=== PATIENT | female | born 1960 | race Caucasian/White ===

== ENCOUNTER 2017-01-18 23:05 | Emergency (ER) | payer OTHER ==
[2017-01-18] MEDS ORDERED: ASPIRIN 81 MG TAB.CHEW ONE (23:15)
[2017-01-18] MEDS ORDERED: ASPIRIN 81 MG TAB.CHEW PO ONE (23:21)
[2017-01-18] MEDS: NITROGLYCERIN 0.4 MG/TAB BTL SL PRN ×2 (23:22→23:27)
[2017-01-18] MEDS ORDERED: LABETALOL HCL 5 MG/ML VIAL IV ONE ×2 (23:30→23:36)
--- NOTE | 2017-01-18 23:35 | ERNOTE ---
Chest Pain/Cardiac HPI Date of Service: 01/18/17 Chief Complaint: Chest Pain Time Seen by Provider: 01/18/17 23:28 Source: patient, family Immunizations: IMMUNIZATION HX Immunizations Up to Date Yes History of Influenza Vaccine No Hx Pneumococcal Vaccination No Allergies/Adverse Reactions: Allergies [place] And Derivatives Allergy (Verified 01/18/17 23:20) Hives Home Medications: HOME MEDICATIONS Zolpidem Tartrate [Ambien] 10 mg PO HS PRN 12/21/15 [Last Taken 12/20/15] Lisinopril [Zestril] 10 mg PO DAILY #30 tab 01/19/17 [Last Taken Unknown] Narrative: C/O CHEST PRESSURE ABOUT 2200 . SHE THINKS SHE MAY HAVE HEAT EXHASUTION BECAUSE SHE SAYS SHE HAS HAD THAT BEFORE. - Patient's Past Medical History Patient History - Medical: Anxiety, Other Patient History - Cardiac/Respiratory: Other Patient History - Cancer: No Hx of Cancer Patient History - Surgical Procedures: Hysterectomy, Tubal Ligation, T & A Patient History - Other: None LMP (females 10-50): hysterectomy - Social History Living Situations: other Abuse History: No History of abuse Psych History: Hx of Anxiety Smoking Status: Current every day smoker Have you smoked in the past 12 months: Yes Alcohol Use: occasionally Drug Use: none - Immunizations Immunizations Up to Date: Yes Hx Pneumococcal Vaccination: No History of Influenza Vaccine: No ED Progress - Results and Orders Patient's Lab Results:: I have reviewed the patient's lab results. Results and Orders: LABS ARE NORMAL WITH FIRST AND 4 HOUR TROPONIN BOTH NEGATIVE = <0.017 - Vital Signs Patient's Vital Signs:: I have reviewed the patient's vital signs. Vital Signs: Vital Signs 01/18/17 23:14 Temperature 36.4 C L Pulse Rate 79 Respiratory 20 Rate Blood Pressure 220/118 O2 Sat by Pulse 93 Oximetry REPEAT BP AFTER NTG X 2 = 174/111, LABETALOL IV ORDERED. - EKG EKG: NSR EKG read: Interp. by me - Progress/Reassessment Chief Complaint: Chest Pain Progress:: Pain free at discharge - EXCEPT FOR SOME HEADACHE THAT DEVELOPED AFTER THE NTG X 2 S.L. HER OTHER PROBLEM OF HTN IMPROVED GREATLY AFTER 2ND DOSE OF LABETOLOL IV BUT SHE IS GOING TO NEED TO START ON ORAL TREATMENT . Plan - Plan Plan: HER MORE RECENT BLOOD PRESSURES ARE IN 160/90 RANGE. Departure - Departure Clinical Impression: Chest pain in adult HTN (hypertension) Qualifiers: Hypertension type: essential hypertension Qualified Code(s): I10 - Essential ( primary) hypertension Disposition: Home Follow Up Needed Condition: Good Instructions: Chest Pain Observation, Hypertension, [id number], DASH Eating Plan, Managing Your High Blood Pressure Additional Instructions: YOU NEED TO CONTACT YOUR DOCTOR FRIDAY AND TALK TO HIM ABOUT GETTING FURTHER EVALUATION AND FOLLOW UP FOR TWO REASONS, #1 THE CHEST PAIN MAY NEED FURTHER WORK UP. IF IT RETURNS BEFORE YOU CAN BE SEEN BY HIM, RETURN TO THE ER. #2 . YOUR BLOOD PRESSURE WAS VERY HIGH TONIGHT AND MAY ACTUALLY BE THE CAUSE OF THE CHEST PRESSURE. I HAVE STARTED A BLOOD PRESSURE MEDICATION CALLED LISINOPRIL, BUT THE DOSE AND EVEN THE MEDICATION ITSELF MAY NEED TO BE ADJUSTED DEPENDING ON HOW WELL YOU ARE CONTROLLED. IT IS OFTEN AN INVOLVED PROCESS TO GET A GOOD TOLERABLE TREATMENT PROGRAM AND WILL NEED CONSTANT MONITORING. Referrals: Endy Whittaker MD [Primary Care Provider] - Prescriptions: Lisinopril [Zestril] 10 mg PO DAILY #30 tab
[2017-01-18 23:49] LABS: Hematocrit 40.2 % (37.0-47.0); Hemoglobin 13.7 gm/dL (12.5-16.0); Mean Cell Volume 90.5 fl (78-100); Mean Corpuscular Hemoglobin 30.9 pg (27-31); Mean Corpuscular Hgb Conc 34.1 g/dl (32-36); Mean Platelet Volume 10.9 fl (6.0-9.5); Neutrophil # 4.8 K/mm3 (1.3-6.0); Neutrophil % 61.5 % (42-75.0); Platelet Count 313 K/mm3 (150-450); Red Blood Count 4.44 M/mm3 (4.2-5.4); Red Cell Distribution Width 14.1 % (11.5-14.0); White Blood Count 7.8 K/mm3 (4.0-10.5)
[2017-01-19 00:08] LABS: ALT 26 U/L (19-67); AST 18 U/L (0-48); Albumin * 3.7 gm/dl (3.4-5.0); Alkaline Phosphatase * 127 U/L (50-170); Anion Gap 14.3 mmol/L (6.8-13.8); BUN/Creatinine Ratio 23.8 (9.0-21.6); Bilirubin, Total 0.2 mg/dL (0.0-1.1); Blood Urea Nitrogen 20 mg/dL (3-23); Ca. Corrected For Albumin 9.3 mg/dL (8.4-10.2); Calcium * 9.4 mg/dL (7.9-10.9); Carbon Dioxide 24.2 mmol/L (24-32.6); Chloride 105 mmol/L (97-106); Glucose * 101 mg/dL (70-110); Potassium 3.5 mmol/L (3.4-4.6); Sodium 140 mmol/L (132-142); Total Protein 7.3 gm/dL (6.2-8.2); Troponin I Less than 0.017 ng/ml (0.00-0.10)
[2017-01-19 00:12] LABS: INR 0.96 INR (0.90-1.10); Partial Thrombolplastin Time 27.5 Seconds (24-32)
[2017-01-19] MEDS ORDERED: ACETAMINOPHEN 325 MG TABLET PO ONE (00:16)
[2017-01-19] MEDS ORDERED: ACETAMINOPHEN 325 MG TABLET ONE (00:17)
[2017-01-19 00:18] LABS: Urine Bilirubin Negative (NEGATIVE); Urine Blood Negative /ul (NEGATIVE); Urine Ketone Negative (NEGATIVE); Urine Nitrite Negative (NEGATIVE); Urine Protein Negative (NEGATIVE); Urine Urobilinogen Normal (NORMAL); Urine pH 5.5 pH (5.0-7.0)
[2017-01-19 00:28] LABS: Urine Appearance Clear; Urine Bacteria TRACE; Urine Color Pale Yellow; Urine RBC None Seen /hpf (0-5); Urine WBC None Seen /hpf (0-5)
[2017-01-19] MEDS ORDERED: KETOROLAC TROMETHAMINE 30 MG/ML VIAL ONE ×2 (00:54→02:51)
[2017-01-19] MEDS ORDERED: KETOROLAC TROMETHAMINE 30 MG/ML VIAL IV ONE ×2 (00:58→02:42)
--- OUTSIDE RECORDS SUMMARY | 2017-01-19 01:41 | XMS REPORT | Continuity of Care Document ---
:1960 Author Organization [facility] [place] [address] Care Team Providers Name Role Phone Endy Whittaker Primary Care Provider [phone] Source Comments This disclosure is being made pursuant to the [email or web address] program and maynot contain all information available regarding this patient.[facility] Active Allergies and Adverse Reactions Not on File Current Medications Be aware that medications may not be up to date as of this document. Alwaysverify current medications with the patient. Prescription Sig. Disp. Refills Start Date End Date Status estrogens, Take 0.3 mg by Active conjugated, mouth. (PREMARIN) 0.3 MG tablet DULoxetine Take 60 mg by Active (CYMBALTA) 60 MG mouth daily. capsule zolpidem (AMBIEN) Take 1 tablet 30 tablet 0 01/01/2017 Active 10 MG tablet (10 mg total) by mouth nightly as needed. FOR SLEEP zolpidem (AMBIEN) Take 1 tablet 30 tablet 0 11/26/2016 12/31/2016 Discontinued 10 MG tablet (10 mg total) by mouth nightly as needed. FOR SLEEP Active Problems Not on file Most Recent Encounters Date Type Specialty Providers Description 12/31/2016 Refill Orthopedic Surgery Felicia Vargas RMA 11/26/2016 Refill Family Endy Erazo MD 11/26/2016 Refill Family Medicine Linda Cronin CMA 11/26/2016 Refill Family Medicine Endy Whittaker MD 11/11/2016 Orders Only Family Endy Erazo, Insomnia, unspecified MD type (Primary Dx) 10/24/2016 Refill Family Medicine Felicia Vargas RMA Social History Tobacco Use Types Packs/Day Years Used Date Current Every Day Smoker Alcohol Use Drinks/Week oz/Week Comments No Last Filed Vital Signs Vital Sign Reading Time Taken Blood Pressure 176/116 09/20/2016 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 Pulse 89 09/20/2016 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 Temperature 36.3 C (97.4 F) 09/20/2016 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 Respiratory Rate 16 09/20/2016 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 Height 1.6 m (5' 3") 09/20/2016 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 Weight 77.928 kg (171 lb 12.8 oz) 09/20/2016 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 Body Mass Index 30.44 09/20/2016 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 Oxygen Saturation 95% 09/20/2016 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 Plan of Care Health Maintenance Due Date Last Done Comments Hepatitis C Screening 1978 Pneumococcal Medium Risk 19-64 yo (1 of 1 - PPSV23) 1979 Tetanus/Pertussis (1 - Tdap) 1979 Pap Smear 1981 Colonoscopy 2010 Mammogram 2010 Well Adult Visit 2010 Influenza Immunization (#1) 2016 Results from Last 3 Months Not on file
--- OUTSIDE RECORDS SUMMARY | 2017-01-19 01:41 | XMS REPORT | Continuity of Care Document ---
:1960 Author Organization [facility] ([facility]) Address [address] [place] [address] Phone [phone] Care Team Providers Name Role Phone Provider, No-Primary Care Primary Care Provider Unavailable Source Comments This disclosure is being made pursuant to the Care Everywhere program, applicable federal and state laws, and may not contain all informaitonavailable regarding this patient.[facility] ([facility]) Active Allergies and Adverse Reactions No Known Allergies Current Medications Prescription Sig. Disp. Refills Start Date End Date Status Amoxicillin 500 mg Tab take 500 mg by Active mouth 2 times daily. topiramate (TOPAMAX) 50 mg take 50 mg by Active tablet mouth 2 times daily. estrogens, conjugated take 0.3 mg by Active (PREMARIN) 0.3 mg tablet mouth daily. LORazepam (ATIVAN) 0.5 mg take 0.5 mg by Active tablet mouth every 4 hours as needed. Meclizine 25 mg Cap take by mouth. Active Active Problems Not on file Social History Tobacco Use Types Packs/Day Years Used Date Never Assessed Last Filed Vital Signs Vital Sign Reading Time Taken Blood Pressure 145/93 11/04/2009 1:18 PM CDT Pulse 84 11/04/2009 1:18 PM CDT Temperature 36.1 C (97 F) 11/04/2009 1:18 PM CDT Respiratory Rate 18 11/04/2009 1:18 PM CDT Height - - Weight - - Body Mass Index - - Oxygen Saturation 95% 11/04/2009 1:18 PM CDT Plan of Care Health Maintenance Due Date Last Done Comments HCV Screening 1960 Hepatitis B Vaccine (1 of 3 - Primary Series) 1960 Tdap Vaccine 1971 Lipid Disorder Screening 1978 MMR Vaccine 1978 Td Vaccine 1978 Cervical Cancer Screening 1990 Mammogram 2000 Colonoscopy 2010 Influenza Vaccine: Seasonal (#1) 03/04/2016 Results from Last 3 Months Not on file
[2017-01-19] MEDS ORDERED: LABETALOL HCL 5 MG/ML VIAL IV ONE (02:20)
[2017-01-19 03:28] VITALS: BP 150/76
[2017-01-19] MEDS ORDERED: LISINOPRIL 10 MG TABLET ONE (04:47)
[2017-01-19] MEDS ORDERED: LISINOPRIL 10 MG TABLET PO ONE (04:49)
== END 2017-01-19 05:00 | disposition home or self-care (01) ==
LOC: ER 23:05
DX: R07.9 Chest pain, unspecified (principal); I10 Essential (primary) hypertension; F17.200 Nicotine dependence, unspecified, uncomplicated

== ENCOUNTER 2017-01-20 19:18 | Emergency (ER) | payer OTHER ==
[2017-01-20 20:03] LABS: Hematocrit 39.3 % (37.0-47.0); Hemoglobin 13.3 gm/dL (12.5-16.0); Mean Cell Volume 91.8 fl (78-100); Mean Corpuscular Hemoglobin 31.1 pg (27-31); Mean Corpuscular Hgb Conc 33.8 g/dl (32-36); Mean Platelet Volume 10.9 fl (6.0-9.5); Neutrophil % 67.6 % (42-75.0); Platelet Count 291 K/mm3 (150-450); Red Blood Count 4.28 M/mm3 (4.2-5.4); Red Cell Distribution Width 14.3 % (11.5-14.0); White Blood Count 8.9 K/mm3 (4.0-10.5)
--- OUTSIDE RECORDS SUMMARY | 2017-01-20 20:08 | XMS REPORT | Continuity of Care Document ---
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 Pulse 89 09/20/2016 2:15 PM GARBAGE TRUCK HELPER Temperature 36.3 C (97.4 F) 09/20/2016 2:15 PM GARBAGE TRUCK HELPER Respiratory Rate 16 09/20/2016 2:15 PM GARBAGE TRUCK HELPER Height 1.6 m (5' 3") 09/20/2016 2:15 PM GARBAGE TRUCK HELPER Weight 77.928 kg (171 lb 12.8 oz) 09/20/2016 2:15 PM GARBAGE TRUCK HELPER Body Mass Index 30.44 09/20/2016 2:15 PM GARBAGE TRUCK HELPER Oxygen Saturation 95% 09/20/2016 2:15 PM GARBAGE TR[employer] HELPER Plan of Care Date Type Specialty Providers Description 01/23/2017 Appointment Family Medicine Endy Whittaker MD [address] [id number] [phone] (Fax) Health Maintenance Due Date Last Done Comments Hepatitis C Screening 1978 Pneumococcal Medium Risk 19-64 yo (1 of 1 - PPSV23) 1979 Tetanus/Pertussis (1 - Tdap) 1979 Pap Smear 1981 Colonoscopy 2010 Mammogram 2010 Well Adult Visit 2010 Influenza Immunization (#1) 2016 Results from Last 3 Months Not on file
--- OUTSIDE RECORDS SUMMARY | 2017-01-20 20:08 | XMS REPORT | Continuity of Care Document ---
:1960 Author Organization [facility] ([facility]) Address [address] [place] [address] Phone [phone] Care Team Providers Name Role Phone Provider, No-Primary Care Primary Care Provider Unavailable Source Comments This disclosure is being made pursuant to the Care Everywhere program, applicable federal and state laws, and may not contain all informaitonavailable regarding this patient.[facility] ([facility]) Active Allergies and Adverse Reactions No [...]
[2017-01-20] MEDS ORDERED: ASPIRIN 81 MG TAB.CHEW PO ONE (20:11)
--- NOTE | 2017-01-20 20:15 | ERNOTE ---
Chest Pain/Cardiac HPI Date of Service: 01/20/17 Chief Complaint: Chest Pain Time Seen by Provider: 01/20/17 20:03 Source: patient, past records Exam Limitations: no limitations Immunizations: IMMUNIZATION HX Immunizations Up to Date Yes History of Influenza Vaccine No Hx Pneumococcal Vaccination No Allergies/Adverse Reactions: Allergies [place] And Derivatives Allergy (Verified 01/18/17 23:20) Hives Home Medications: HOME MEDICATIONS Zolpidem Tartrate [Ambien] 10 mg PO HS PRN 12/21/15 [Last Taken 12/20/15] Lisinopril [Zestril] 10 mg PO DAILY #30 tab 01/19/17 [Last Taken Unknown] Narrative: PT IS BACK WITH C/O CHEST PRESSURE AND TINGLING IN LEFT ARM. I JUST SAW HER THE NIGHT BEFORE LAST WITH SIMILAR SYMPTOMS AND W/U WAS NEGATIVE FOR FINDING OF A CARDIAC EVENT . SHE WAS NOTED TO HAVE VERY HIGH BLOOD PRESSURE AND WAS STARTED ON LISINPRIL AFTER 2 IV DOSES OF 20 MG LABETALOL. SHE WAS INSTRUCTED TO F/U WITH HER PCP AND SHE HAS AN APPOINTMENT FOR FRIDAY. SHE SAYS SHE STARTED TO "FEEL WEIRD" ABOUT 1844 WHILE WATCHING TV. SHE C/O HAVING A HEADACHE AND FEELING SHAKY AND HAVING CENTRAL UPPER STERNAL CHEST PAIN , 8/10. NO SWEATING OR SOB BUT SAYS SHE HAD TINGLING DOWN HER LEFT ARM ALL OF WHICH IS STILL THERE. HER BP IS ELEVATED STILL TODAY THOUGH NOT HIGH IT WAS . SHE STATES SHE HAS BEEN TAKING THE LISINOPRIL 20 MG. Review of Systems - Review of Systems Constitutional: Present: See HPI EYE: Present: no symptoms reported ENT: Present: no symptoms reported Respiratory: Present: no symptoms reported Cardiology: Present: See HPI, chest pain Gastrointestinal/Abdominal: Present: no symptoms reported Genitourinary: Present: no symptoms reported Musculoskeletal: Present: no symptoms reported Skin: Present: no symptoms reported Neurological: Present: headache, dizziness/light-headedness - "FEELING WEIRD" Endocrine: Present: no symptoms reported Hematologic/Lymphatic: Present: no symptoms reported Psych: Present: no symptoms reported All Other Systems: All systems neg except as marked - Patient's Past Medical History Patient History - Medical: Anxiety, Other Patient History - Cardiac/Respiratory: Hypertension, Other Patient History - Cancer: No Hx of Cancer Patient History - Surgical Procedures: Hysterectomy, Tubal Ligation, T & A Patient History - Other: None - Social History Living Situations: home Abuse History: No History of abuse Psych History: Hx of Anxiety Smoking Status: Current every day smoker Patient requests Smoking Cessation Consult: No Initiate information on Smoking Cessation: No Alcohol Use: occasionally Drug Use: none - Immunizations Immunizations Up to Date: Yes Hx Pneumococcal Vaccination: No History of Influenza Vaccine: No Physical Exam - Physical Exam General Appearance: Present: wd/wn, alert, mild distress, anxious Eye Exam: Abnormal EOM: bilateral Neck: Present: normal inspection, nontender Respiratory: Present: no respiratory distress, normal breath sounds, no accessory muscle use, lungs clear, chest tenderness - TODAY SHE DOES C/O OF UPPER STERNAL TENDERNESS TO PALPATION WELL LOWER STERNUM AND EPIGSTRIC TENDERNESSS. Cardiovascular/Chest: Present: regular rate, rhythm, no murmur, normal peripheral pulses Gastrointestinal/Abdominal: Present: nondistended, soft, no organomegaly, tenderness - EPIGASTRIC Extremity Exam: Present: normal inspection, no edema Neurological Exam: Present: alert, oriented Skin Exam: Present: normal color ED Progress - Results and Orders Patient's Lab Results:: I have reviewed the patient's lab results. Results and Orders: CBC, CMP AND TROPONIN ARE NORMAL. HER D DIMER IS ELEVATED = 1.12 - Vital Signs Patient's Vital Signs:: I have reviewed the patient's vital signs. Vital Signs: Vital Signs 01/20/17 01/20/17 01/20/17 19:22 19:31 19:35 Temperature 37.3 C Pulse Rate 67 71 73 Respiratory 18 12 Rate Blood Pressure 195/94 195/94 O2 Sat by Pulse 95 93 Oximetry 01/20/17 19:51 Temperature Pulse Rate 75 Respiratory 25 H Rate Blood Pressure 195/94 O2 Sat by Pulse 93 Oximetry - EKG EKG: NSR, no ST T wave changes EKG read: Interp. by me - CT/Ultrasound CT/Ultrasound Narrative: CTA CHEST = NO PE - Progress/Reassessment Chief Complaint: Chest Pain Progress:: Improved Plan - Plan Plan: WHILE AWAITING A 4 HOUR TROPONIN THAT HAD BEEN ORDERED , PT. LEFT A.M.A. Departure - Departure Clinical Impression: Chest pain Qualifiers: Chest pain type: unspecified Qualified Code(s): R07.9 - Chest pain, unspecified Hypertension Qualifiers: Hypertension type: essential hypertension Qualified Code(s): I10 - Essential ( primary) hypertension Disposition: Against medical advice Referrals: Endy Whittaker MD [Primary Care Provider] -
[2017-01-20 20:16] LABS: Prothrombin Time (Patient) 9.9 Seconds (9.4-11.4)
[2017-01-20] MEDS ORDERED: ASPIRIN 81 MG TAB.CHEW ONE (20:17)
[2017-01-20 20:18] LABS: INR 0.95 INR (0.90-1.10); Partial Thrombolplastin Time 26.9 Seconds (24-32)
[2017-01-20 20:22] LABS: ALT 27 U/L (19-67); AST 14 U/L (0-48); Albumin * 3.5 gm/dl (3.4-5.0); Alkaline Phosphatase * 107 U/L (50-170); Anion Gap 11.3 mmol/L (6.8-13.8); BUN/Creatinine Ratio 31.6 (9.0-21.6); Bilirubin, Total 0.2 mg/dL (0.0-1.1); Blood Urea Nitrogen 25 mg/dL (3-23); Ca. Corrected For Albumin 8.9 mg/dL (8.4-10.2); Calcium * 8.8 mg/dL (7.9-10.9); Carbon Dioxide 26.6 mmol/L (24-32.6); Chloride 107 mmol/L (97-106); Glucose * 93 mg/dL (70-110); Potassium 3.9 mmol/L (3.4-4.6); Sodium 141 mmol/L (132-142); Total Protein 6.9 gm/dL (6.2-8.2); Troponin I Less than 0.017 ng/ml (0.00-0.10)
[2017-01-20] MEDS ORDERED: MAG HYDROX/ALUMINUM HYD/SIMETH 30 ML UDC PO ONE (20:25)
[2017-01-20] MEDS ORDERED: LIDOCAINE HCL 20 ML UDC PO ONE (20:25)
[2017-01-20] MEDS ORDERED: SUCRALFATE 1 G/10 ML UDC PO ONE (20:31)
[2017-01-20] MEDS ORDERED: LABETALOL HCL 5 MG/ML VIAL IV ONE ×2 (20:31→20:32)
[2017-01-20 23:46] VITALS: BP 165/68
== END 2017-01-21 00:03 | disposition left against medical advice (07) ==
LOC: ER 19:18
DX: I10 Essential (primary) hypertension (principal); R07.9 Chest pain, unspecified; F17.200 Nicotine dependence, unspecified, uncomplicated; Z53.29 Procedure and treatment not carried out because of patient's decision for other reasons